=== PATIENT | female | born 1945 | race African-American/Black ===

== ENCOUNTER 2017-06-12 19:02 | Emergency (ER) | payer MEDICARE, MEDICAID ==
[~2017-06-12] VITALS: Ht 162.6 cm; Wt 78.0 kg
[~2017-06-12 19:02] MED LIST: BENADRYL; CAPTOPRIL; GABAPENTIN; INHALER; LIPITOR; VICODIN
[2017-06-12] MEDS ORDERED: ALBUTEROL (0.083%) 2.5MG/3ML NEB HHN STA (19:29)
[2017-06-12] MEDS ORDERED: IPRATROPIUM BROMIDE (0.02%) 0.5MG/2.5ML NEB HHN STA (19:29)
[2017-06-12] MEDS ORDERED: LEVOFLOXACIN 250MG TABLET PO ONE (19:30)
[2017-06-12 19:56] LABS: BASOPHILS % 1.1 % (0.0-2.0); EOSINOPHILS % 2.1 % (0.0-5.0); HEMOGLOBIN. 12.7 g/dL (12.0-16.0); LYMPHOCYTES % 25.1 % (20.0-50.0); MEAN CORPUSCULAR HEMOGLOBIN 25.9 pg (28.0-32.0); MEAN CORPUSCULAR VOLUME 77.6 fL (81.0-99.0); MEAN PLATELET VOLUME 7.8 fl (7.4-10.4); MONOCYTES % 12.7 % (2.0-8.0); PLATELET 237 x1000/uL (130-400); RED CELL DISTRIBUTION WIDTH 15.6 % (11.6-14.6)
[2017-06-12 20:01] LABS: D-DIMER 0.42 mg/L FEU (<0.50); PARTIAL THROMBOPLASTIN TIME 23.7 sec (23.4-31.0)
[2017-06-12 20:08] LABS: CARBON DIOXIDE 30 mEq/L (21-32); CHLORIDE 105 mEq/L (98-107); CREATINE KINASE 127 IU/L (26-192); TROPONIN I < 0.02 ng/mL (0.00-0.04)
[2017-06-12] MEDS ORDERED: HYDROCODONE/ACETAMINOPHEN 5/325MG TABLET PO ONE (21:00)
[2017-06-12] MEDS ORDERED: IBUPROFEN 600MG TABLET PO ONE (21:00)
[2017-06-12 21:43] VITALS: BP 147/81
== END 2017-06-12 21:49 | disposition home or self-care (01) ==
LOC: ER 19:02
DX: J40 Bronchitis, not specified as acute or chronic (principal); S16.1XXA Strain of muscle, fascia and tendon at neck level, initial encounter; M54.12 Radiculopathy, cervical region; I10 Essential (primary) hypertension; J45.909 Unspecified asthma, uncomplicated; Z87.891 Personal history of nicotine dependence; X58.XXXA Exposure to other specified factors, initial encounter; Y93.89 Activity, other specified; Y92.018 Other place in single-family (private) house as the place of occurrence of the external cause
CPT/HCPCS: 36415; 71010; 80053; 82550; 83690; 83880; 84484; 85025; 85379; 85610; 85730; 93005; 94644; 99285; J7611